=== PATIENT | male | born 2000 | race Caucasian/White ===

== ENCOUNTER → 2020-12-06 | Outpatient (REF) ==
--- NOTE | 2020-12-07 02:25 | REP ---
INDICATION: RIGHT KNEE PAIN COMPARISON: None. TECHNIQUE: AP and lateral views. FINDINGS: NO EVIDENCE FOR ACUTE FRACTURE OR DISLOCATION. NO SIGNIFICANT DEGENERATIVE CHANGES ARE APPRECIATED. NO OBVIOUS EFFUSION. IMPRESSION: NORMAL AGE-APPROPRIATE RIGHT KNEE RADIOGRAPHS. <Electronically signed by Kosta Wallace > 12/07/20 [id number]
== END ==
LOC: M RAD 14:50
PROVIDERS: ATTEND Internal Medicine
DX: M25.561 Pain in right knee (principal)

== ENCOUNTER → 2021-01-21 | Outpatient (REF) ==
--- NOTE | 2021-01-21 10:09 | REP ---
INDICATION: PAIN. COMPARISON: None. TECHNIQUE: AP view of the pelvis with neutral and frog-lateral views of the right and left hip. FINDINGS: Osseous structures, joint spaces, and surrounding soft tissues are essentially age-appropriate, symmetric and within normal limits. No evidence for acute injury. No overt arthritic or congenital abnormalities noted. IMPRESSION: Normal bilateral hip/pelvic radiograph series. <Electronically signed by Kosta Wallace > 01/21/21 [id number]
== END ==
LOC: M PLAIMG 09:19
PROVIDERS: ATTEND Internal Medicine
DX: M25.551 Pain in right hip (principal); M25.552 Pain in left hip